=== PATIENT | male | born 1995 | race Caucasian/White ===

== ENCOUNTER 2017-07-07 14:59 | Emergency (ER) | payer OTHER ==
[2017-07-07 15:13] VITALS: BP 143/86; PULSE 90; RESP 16; TEMP 98.6
--- NOTE | 2017-07-07 15:32 | ED ---
Extremity Problem HPI - General Chief complaint: Extremity Problem,Nontraumatic Stated complaint: knee pain Time Seen by Provider: 07/07/17 15:07 Source: patient, RN notes reviewed Mode of arrival: ambulatory Limitations: no limitations - History of Present Illness Initial comments: 22-year-old male present emergency department for right knee pain. Patient states she's had on and off the pain over the last 2 weeks. Patient was seen at [facility] for this and diagnosed with a sprain. He states he was doing better until he twisted his knee last night. Patient states it's more sore now. Patient states he has a knee immobilizer at home and has been wearing this. Denies any prior knee injuries of the last couple weeks. Patient states that he has no paresthesias no hip pain no ankle pain. - Related Data Home Medications Medication Instructions Recorded Confirmed Buprenorphine HCl/Naloxone HCl 1 film SL BID 07/07/17 07/07/17 [Suboxone 8 mg-2 mg Sl Film] Ibuprofen [Motrin] 600 mg PO Q6HR PRN 07/07/17 07/07/17 Allergies Allergy/AdvReac Type Severity Reaction Status Date / Time No Known Allergies Allergy Verified 07/07/17 15:28 Review of Systems ROS Statement: Those systems with pertinent positive or pertinent negative responses have been documented in the HPI. ROS Other: All systems not noted in ROS Statement are negative. Past Medical History Additional Past Medical History / Comment(s): opiod dependancy History of Any Multi-Drug Resistant Organisms: None Reported Past Surgical History: No Surgical Hx Reported Past Psychological History: Anxiety Smoking Status: Current every day smoker Past Alcohol Use History: None Reported Past Drug Use History: None Reported General Exam Limitations: no limitations General appearance: alert, in no apparent distress Head exam: Present: atraumatic, normocephalic, normal inspection Neck exam: Present: normal inspection, full ROM. Absent: tenderness, meningismus, lymphadenopathy Respiratory exam: Present: normal lung sounds bilaterally. Absent: respiratory distress, wheezes, rales, rhonchi, stridor Cardiovascular Exam: Present: regular rate, normal rhythm, normal heart sounds. Absent: systolic murmur, diastolic murmur, rubs, gallop, clicks Extremities exam: Present: other (Right knee there is mild tenderness to lateral aspect and pain with varus, patient has full range of motion mild discomfort with knee extension neurovascular intact joint above and below right knee within normal limits.) Course Vital Signs 07/07/17 15:07 Temperature 98.6 F Pulse Rate 90 Respiratory 16 Rate Blood Pressure 143/86 O2 Sat by Pulse 98 Oximetry Medical Decision Making - Medical Decision Making 22-year-old male presented for right knee pain. Patient is right knee sprain. He is advised follow-up with orthopedics. Return parameters were discussed. Disposition Clinical Impression: Right knee sprain Disposition: HOME SELF-CARE Condition: Stable Instructions: Knee Sprain (ED) Additional Instructions: Please return to the Emergency Department if symptoms worsen or any other concerns. Referrals: Tomas Stanley MD [Primary Care Provider] - 1-2 days Luigi Montenegro DO [Doctor of Osteopathic Medicine] - 1-2 days Time of Disposition: 15:32
== END 2017-07-07 15:36 | disposition home or self-care (01) ==
LOC: EC 14:59
DX: S83.91XA Sprain of unspecified site of right knee, initial encounter (principal); F17.200 Nicotine dependence, unspecified, uncomplicated; Z79.899 Other long term (current) drug therapy; X50.1XXA Overexertion from prolonged static or awkward postures, initial encounter
CPT/HCPCS: 99282

== ENCOUNTER → 2019-05-07 | Outpatient (CLI) | payer OTHER ==
--- NOTE | 2019-05-07 16:11 | XR ---
EXAMINATION TYPE: XR chest 2V DATE OF EXAM: 05/07/2019 COMPARISON: Prior chest x-ray 12/18/2015 HISTORY: Tobacco abuse TECHNIQUE: Frontal and lateral views of the chest are obtained. FINDINGS: There is no focal air space opacity, pleural effusion, or pneumothorax seen. The cardiac silhouette size is within normal limits. The osseous structures are intact. IMPRESSION: No acute cardiopulmonary process.
== END | disposition home or self-care (01) ==
LOC: RADXRMAIN 14:55
PROVIDERS: ATTEND Internal Medicine
DX: F17.210 Nicotine dependence, cigarettes, uncomplicated (principal)
CPT/HCPCS: 71046